=== PATIENT | female | born 1950 | race African-American/Black ===

== ENCOUNTER 2019-05-01 22:40 | Emergency (ER) | payer BC ==
[~2019-05-01] VITALS: Ht 162.6 cm; Wt 84.0 kg
[~2019-05-01 22:40] MED LIST: HYDROCHLOROTHIAZIDE; METFORMIN; PRAVASTATIN; TRAMADOL
[2019-05-01 23:15] VITALS: BP 150/80
== END 2019-05-02 00:54 | disposition left against medical advice (07) ==
LOC: ER 22:40
DX: R51 Headache (principal); Z53.21 Procedure and treatment not carried out due to patient leaving prior to being seen by health care provider